=== PATIENT | female | born 1965 | race Caucasian/White ===

== ENCOUNTER → 2016-08-26 | Outpatient (CLI) | payer OTHER ==
[~2016-08-26] MED LIST: PARO40TA61 PO; ZOLP-113 PO
[2016-08-26 16:57] LABS: IONIZED CALCIUM 1.45 MMOL/L (1.12-1.32)
[2016-08-26 16:58] LABS: HEMOGLOBIN A1C 5.6 % (6.1-7.9)
[2016-08-27 02:23] LABS: FERRITIN 9.35 NG/ML (6-137)
== END ==
LOC: LAB 16:24
PROVIDERS: ATTEND Family Medicine
DX: R71.8 Other abnormality of red blood cells (principal); R73.9 Hyperglycemia, unspecified; E83.52 Hypercalcemia; M25.50 Pain in unspecified joint
CPT/HCPCS: 36415; 82330; 82728; 83036; 83540; 83550; 83970; 86038; 86431